=== PATIENT | male | born 1955 | race Caucasian/White ===

== ENCOUNTER 2019-01-19 10:45 | Day surgery (SDC) | payer OTHER ==
[~2019-01-19] VITALS: Ht 177.8 cm; Wt 75.4 kg
[~2019-01-19 10:45] MED LIST: ANUSOL-HC30 GM PR; ASPIR-LOW81 MG PO; BACTRIM DS TAB1 EACH PO; CRESTOR20 MG PO; GABAPENTIN400 MG PO; KEFLEX500 MG PO; MIRALAX17 GM PO; NAPROSYN500 MG PO; OMEPRAZOLE20 MG PO; TAMSULOSIN HCL0.4 MG PO; VITAMIN D2000 UNI1 PO
[2019-01-19] MEDS ORDERED: HYDROCODON-ACE1 EA10 PO (12:33)
--- NOTE | 2019-01-19 12:38 | NUR ---
01/19/19 1238 Chhaya Garces 1234 PATIENT ARRIVES TO PACU AWAKE, BUT DROWSY. RESP EVEN AND UNLABORED, ROOM AIR SATS >95%.
--- NOTE | 2019-01-22 06:59 | OR ---
[facility] [address], [place] [address] Signed DATE OF OPERATION: 01/19/2019 SURGEON: Christi Bradford MD PREOPERATIVE DIAGNOSIS: Trigger finger, middle, left. POSTOPERATIVE DIAGNOSIS: Trigger finger, middle, left. PROCEDURE PERFORMED: Left middle trigger finger release. ANESTHESIA: [place]. CLINICAL ALLERGIST: None. TOURNIQUET TIME: 20 minutes. BRIEF HISTORY: José Miguel is a 63-year-old gentleman with painful locking his hand. He also has underlying mild Dupuytren's disease. Risks and benefits of operative treatment discussed with him. He elected to proceed. DESCRIPTION OF PROCEDURE: Once consent was obtained, he was taken to the operating room. After adequate anesthesia, he was placed on operating table. All downside pressure points were well padded. The arm was prepped and draped in a standard sterile fashion. The Paulden block was allowed to established and then 1.5 cm incision was made overlying the middle ray at the A1 ricco. This was taken through skin and subcutaneous tissue. Numerous Dupuytren's fascial bands were encountered and released in order to visualize the underlying tendon sheath. The neurovascular bundles were not encountered. The A1 ricco was then dissected free of overlying soft tissue under loupe magnification. It was then released. The patient was asked to move his hand. He was able to fully flex and fully extend with no locking. The wound was copiously irrigated with antibiotic solution, closed with 3-0 nylon, and dressed with bacitracin, Adaptic, 4 x 8, and gauze. He Electronically Signed By: CHRISTI BRADFORD MD 01/22/19 0659 PATIENT NAME: JOSÉ MIGUEL CUENCA OPERATIVE REPORT DATE OF : 53 REPORT #: [id number] PHYSICIAN: CHRISTI BRADFORD MD PCP: VERONICA GODOY MD REPORT IS CONFIDENTIAL AND NOT TO BE RELEASED WITHOUT AUTHORIZATION [facility] [address] [place] [address] Signed tolerated the procedure well. All sponge, needle, and instrument counts were correct. Christi Bradford MD BA/MODL /[id number] Copies: ~ Electronically Signed By: CHRISTI BRADFORD MD 01/22/19 0659 PATIENT NAME: JOSÉ MIGUEL CUENCA OPERATIVE REPORT DATE OF : 53 REPORT #: [id number] PHYSICIAN: CHRISTI BRADFORD MD PCP: VERONICA GODOY MD REPORT IS CONFIDENTIAL AND NOT TO BE RELEASED WITHOUT AUTHORIZATION
== END 2019-01-19 13:10 | disposition home or self-care (01) ==
LOC: DS 10:45 → OPS 10:45 → DS 12:00 → OPS 12:00
PROVIDERS: Specialist
PROC: 0LN80ZZ Release Left Hand Tendon, Open Approach (ICD-10-PCS; principal; 2019-01-19 12:00)
DX: M65.332 Trigger finger, left middle finger (principal); M65.331 Trigger finger, right middle finger; J44.9 Chronic obstructive pulmonary disease, unspecified; F17.210 Nicotine dependence, cigarettes, uncomplicated; K21.9 Gastro-esophageal reflux disease without esophagitis; Z79.899 Other long term (current) drug therapy; Z79.1 Long term (current) use of non-steroidal anti-inflammatories (NSAID)
CPT/HCPCS: 01810; J0690; J7120

== ENCOUNTER 2020-07-01 07:37 | Day surgery (SDC) | payer OTHER ==
[~2020-07-01] VITALS: Ht 177.8 cm; Wt 75.9 kg
[~2020-07-01 07:37] MED LIST changes: +HYDROCODON-ACE1 EA10 PO; +VITAMIN B-121000 MC3 PO; +WELLBUTRIN XL150 MG PO
--- NOTE | 2020-07-01 10:16 | NUR ---
07/01/20 1016 Carly Whalen 0950 PT ARRIVED IN PACU SLEEPY WITH NO C/O'S. ABD SOFT. 1000 RESTING. REU. 1015 SITTING UP IN BED SIPPING ON WATER.
--- NOTE | 2020-07-02 06:32 | OR ---
[facility] [address] [place], [place] [address] Signed DATE OF OPERATION: 07/01/2020 SURGEON: Edward Wheeler MD PREOPERATIVE DIAGNOSIS: Personal history of colonic polyps at age 65 in 2015 with adenomatous polyp in transverse colon. POSTOPERATIVE DIAGNOSES: 1. 3-4 mm rectal polyps at 8 cm. 2. 5 mm rectal polyp at 15 cm. 3. Minimal internal hemorrhoids. PROCEDURE: Colonoscopy with hot biopsy. ESTIMATED BLOOD LOSS: None. INDICATIONS: José Miguel is a 65-year-old gentleman asked to see me for a followup colonoscopy. In 2014 at the age of 65, he underwent a colonoscopy at the [facility] in [place], [place]. He had a single adenomatous polyp removed from his transverse colon. He has no family history of colon cancer or polyps. He has no lower GI complaints. In the office, I gave José Miguel a pamphlet on colonoscopy. He understands the nature of the test along with its risks including, but not limited to gas bloating, crampy abdominal pain, bleeding, perforation requiring surgery, and missed diagnosis. We also reviewed the idea that polyps grow and become cancers. Consequently, he will stay on the 5-year rotation. He also understands the need for IV conscious sedation. He had expressed understanding and wished to proceed. PROCEDURE NOTE: José Miguel was taken into our endoscopy suite and placed in the left lateral decubitus position. A digital rectal exam was performed and he does have some induration to his prostate gland, left a little more prominent than the right. The scope had been introduced and advanced under direct visualization of camera. It took a minute to get around the splenic flexure and he has a long redundant transverse colon. It took extra sedation abdominal compression in order to advance the scope. Eventually made it around his hepatic flexure after several tries. We then traveled into the cecum itself. The right colon in length. His prep was quite good. We could easily see the Electronically Signed By: EDWARD WHEELER MD 07/02/20 0632 PATIENT NAME: JOSÉ MIGUEL CUENCA OPERATIVE REPORT DATE OF : 53 REPORT #: [id number] PHYSICIAN: EDWARD WHEELER MD PCP: VERONICA GODOY MD REPORT IS CONFIDENTIAL AND NOT TO BE RELEASED WITHOUT AUTHORIZATION [facility] [address] [place], [place] [address] Signed appendiceal orifice and the ileocecal valve. The scope was then slowly withdrawn. We took pictures throughout for photodocumentation. The above-mentioned polyps had been easily removed with the help of hot biopsy forceps. He had several tiny hyperplastic appearing polyps in the mid rectum and several were biopsied and several were cauterized. Once in the rectum, the scope had been retroflexed and we can see there is just very minimal internal hemorrhoid tissue. The gas was then suctioned out and the colonoscope removed. José Miguel tolerated the procedure quite well. RECOMMENDATIONS: I will see José Miguel back in my office in 7 to 14 days to review his results. It looks like he will stay on the 5-year rotation. Edward Wheeler MD ALB/MODL /[id number] cc: MD Edward Castelan MD Copies: VERONICA GODOY MD, ANDREW L MD ~ Electronically Signed By: EDWARD WHEELER MD 07/02/20 0632 PATIENT NAME: JOSÉ MIGUEL CUENCA OPERATIVE REPORT DATE OF : 53 REPORT #: [id number] PHYSICIAN: EDWARD WHEELER MD PCP: VERONICA GODOY MD REPORT IS CONFIDENTIAL AND NOT TO BE RELEASED WITHOUT AUTHORIZATION
--- NOTE | 2020-07-02 18:28 | PATH ---
[facility] [address] [place], [place] [address] Signed SPECIMEN(S): A RECTAL POLYP AT 8 CM SPECIMEN(S): B RECTAL POLYP AT 15 CM SPECIMEN SOURCE: A. RECTAL POLYP AT 8 CM B. RECTAL POLYP AT 15 CM CLINICAL HISTORY: Colonoscopy. History of polyps. Post: Rectal polyp, internal hemorrhoids. MICROSCOPIC DESCRIPTION: Histologic sections of all submitted blocks are examined by light microscopy. These findings, together with the gross examination, support the pathologic diagnosis. FINAL PATHOLOGIC DIAGNOSIS: A. Rectum, polyp at 8 cm, polypectomy: - Hyperplastic polyp. - Negative for dysplasia or malignancy. B. Rectum, polyp at 15 cm, polypectomy: - Hyperplastic polyp. - Negative for dysplasia or malignancy. NAL:cml:C2NR GROSS DESCRIPTION: Two specimens are received in two containers, labeled "BF." A. The specimen, labeled "BF, 1," and designated on the requisition "rectum polyp at 8 cm," is received in formalin and consists of two jacob soft tissue fragments that measure 0.2-0.3 cm in greatest dimension. The specimen is entirely submitted in cassette (A1). Smaller fragment is minute and may not survive processing. B. The specimen, labeled "BF, 2," and designated on the requisition "rectum polyp at 15 cm," is received in formalin and consists of one jacob soft tissue fragment that measures 0.3 cm in greatest dimension. The specimen is entirely submitted in cassette (B1). AT (under the direct supervision of a pathologist) The Gross Description was prepared using a voice recognition system. The report was reviewed for accuracy; however, sound-alike word errors, addition and/or deletions may occur. If there is any question about this report, please contact Client Services. PERFORMING LABORATORY: PATIENT NAME: PILAR CUENCA PATHOLOGY DATE OF : 53 REPORT #: [id number] PHYSICIAN: KATHRYN SALDIVAR PCP: VERONICA GODOY MD REPORT IS CONFIDENTIAL AND NOT TO BE RELEASED WITHOUT AUTHORIZATION [facility] [address] [place] [address] Signed The technical component was performed by [employer] [facility], [address] [place] [address] (Reconnaissance Crewmember: Jayna Miranda MD; CLIA# [id number]). Professional interpretation was performed by [facility], [address] [address] (CLIA# [id number]). Diagnostician: Margaret Pruitt MD Pathologist Electronically Signed 07/02/2020 Copies: ~ PATIENT NAME: PILRA CUENCA PATHOLOGY DATE OF : 53 REPORT #: [id number] PHYSICIAN: KATHRYN SALDIVAR PCP: VERONICA GODOY MD REPORT IS CONFIDENTIAL AND NOT TO BE RELEASED WITHOUT AUTHORIZATION
== END 2020-07-01 10:40 | disposition home or self-care (01) ==
LOC: DS 07:37 → OPS 07:37 → DS 09:00 → OPS 09:00
PROVIDERS: ATTEND Colon & Rectal Surgery
PROC: 0DBP8ZX Excision of Rectum, Via Natural or Artificial Opening Endoscopic, Diagnostic (ICD-10-PCS; principal; 2020-07-01 09:00)
DX: K63.5 Polyp of colon (principal); K21.9 Gastro-esophageal reflux disease without esophagitis; J44.9 Chronic obstructive pulmonary disease, unspecified; E78.5 Hyperlipidemia, unspecified; M19.90 Unspecified osteoarthritis, unspecified site; F17.210 Nicotine dependence, cigarettes, uncomplicated; Z86.010 Personal history of colon polyps
CPT/HCPCS: 99153; G0500; J2250; J3010; J7121